=== PATIENT | male | born 2005 | race Caucasian/White ===

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

== ENCOUNTER 2025-06-15 13:35 | Observation (INO) | payer OTHER ==
[~2025-06-15] VITALS: Ht 182.9 cm; Wt 81.5 kg
[2025-06-15 14:23] LABS: BASOPHILS ABSOLUTE AUTO 0.05 K/mm3 (0.00-0.23); BASOPHILS PERCENT AUTO 1 % (0-2); EOSINOPHILS ABSOLUTE AUTO 0.11 K/mm3 (0.00-0.68); EOSINOPHILS PERCENT AUTO 1 % (0-6); Hematocrit 46.0 % (37.0-53.0); Hemoglobin 15.9 g/dL (13.5-17.5); IMMATURE GRAN ABSOLUTE AUTO 0.03 K/mm3 (0.00-0.10); IMMATURE GRAN PERCENT AUTO 0 % (0-1); LYMPHOCYTES ABSOLUTE AUTO 1.86 K/mm3 (0.84-5.20); LYMPHOCYTES PERCENT AUTO 18 % (21-46); MONOCYTES ABSOLUTE AUTO 0.63 K/mm3 (0.16-1.47); MONOCYTES PERCENT AUTO 6 % (4-13); Mean Corpuscular HGB Conc 34.6 g/dL (31.5-36.5); Mean Corpuscular Volume 84 fL (80-100); NEUTROPHILS ABSOLUTE AUTO 7.75 K/mm3 (1.96-9.15); NEUTROPHILS PERCENT AUTO 74 % (41-73); NRBC ABSOLUTE 0.00 K/mm3 (0.00-0.02); NRBC Auto 0.0 /100 WBC (0.0-0.2); Platelet Count 367 K/mm3 (150-400); RDW Coefficient Variation 11.9 % (11.7-14.2); RDW Standard Deviation 36.0 fL (35.1-46.3)
[2025-06-15 14:36] LABS: Prothrombin Time Results 11.9 Sec (9.7-11.5)
[2025-06-15 14:46] LABS: Alanine Aminotransfer (ALT/SGP 28.0 U/L (12-78); Albumin, Blood 4.7 g/dL (3.4-5.0); Albumin/Globulin Ratio 1.3 (0.8-1.8); Anion Gap 10.0 mmol/L (3-11); Aspartate Aminotrans (AST/SGOT 15.0 U/L (12-37); Bilirubin, Total 1.5 mg/dL (0.1-1.0); Blood Urea Nitrogen 15.0 mg/dL (8-24); CO2, Blood 26.0 mmol/L (21-32); Calcium, Blood 9.7 mg/dL (8.5-10.1); Chloride, Blood 104.0 mmol/L (98-108); Creatinine, Blood 1.07 mg/dL (0.60-1.20); Globulin, Blood 3.5 g/dL (2.2-4.0); Glucose, Blood 83.0 mg/dL (70-99); Potassium, Blood 3.9 mmol/L (3.5-5.5); Sodium, Blood 136.0 mmol/L (136-145); Total Protein, Blood 8.2 g/dL (6.4-8.2)
[2025-06-15] MEDS ORDERED: Dose Adjust by Pharmacy XX STA (17:27)
[2025-06-15] MEDS ORDERED: Heparin Sodium,Porcine/0.5 NS 500 ML IV SCH (17:30)
[2025-06-15] MEDS ORDERED: Heparin Sodium 5000 Units/ML 1ML MDV IV ONE (17:30)
[2025-06-15] MEDS ORDERED: FLU VACC TS2025-26(6MOS UP)/PF 45 MCG/0.5 ML SYRINGE IM SCH (18:35)
[2025-06-15 20:21] VITALS: BP 143/88
--- NOTE | 2025-06-15 20:48 | NUR ---
ADMIT NOTE HANDOFF RECEIVED FROM EARTH MOVING MACHINE OPERATOR CHIQUI. PT ARRIVED TO FLOOR VIA GURNEY. PT ORIENTED TO UNIT. CALL BUTTON WITHIN REACH. FAMILY AT BEDSIDE. FAMILY INFORMED OF THE PLAN. HEPARIN DRIP INFUSING ORDERED.
[2025-06-16] VITALS (7 sets, daily range): BP systolic 128–152; BP diastolic 69–93
--- NOTE | 2025-06-16 00:22 | NUR ---
SIX SIGMA BLACK BELT ENGINEER COMMUNICATION Per cnc maintenance technician Kera Sorto, patient is showing ST elevation only in the V lead. All other leads do not show ST elevation at this time. Confirmed all leads are without artifacts and intact w/o interferences. Patient sitting in bed w/o any signs of distress. Denies chest pain/discomfort. Called Dr. Saldaña w/ findings. No EKG ordered at this time. Continue to monitor.
[2025-06-16 01:11] LABS: BASOPHILS ABSOLUTE AUTO 0.07 K/mm3 (0.00-0.23); BASOPHILS PERCENT AUTO 1 % (0-2); EOSINOPHILS ABSOLUTE AUTO 0.20 K/mm3 (0.00-0.68); EOSINOPHILS PERCENT AUTO 2 % (0-6); Hematocrit 42.2 % (37.0-53.0); Hemoglobin 14.6 g/dL (13.5-17.5); IMMATURE GRAN ABSOLUTE AUTO 0.02 K/mm3 (0.00-0.10); IMMATURE GRAN PERCENT AUTO 0 % (0-1); LYMPHOCYTES ABSOLUTE AUTO 3.07 K/mm3 (0.84-5.20); LYMPHOCYTES PERCENT AUTO 35 % (21-46); MONOCYTES ABSOLUTE AUTO 0.59 K/mm3 (0.16-1.47); MONOCYTES PERCENT AUTO 7 % (4-13); Mean Corpuscular HGB Conc 34.6 g/dL (31.5-36.5); Mean Corpuscular Volume 84 fL (80-100); NEUTROPHILS ABSOLUTE AUTO 4.86 K/mm3 (1.96-9.15); NEUTROPHILS PERCENT AUTO 55 % (41-73); NRBC ABSOLUTE 0.00 K/mm3 (0.00-0.02); NRBC Auto 0.0 /100 WBC (0.0-0.2); Platelet Count 319 K/mm3 (150-400); RDW Coefficient Variation 11.9 % (11.7-14.2); RDW Standard Deviation 36.0 fL (35.1-46.3)
[2025-06-16 01:32] LABS: Alanine Aminotransfer (ALT/SGP 25.0 U/L (12-78); Albumin, Blood 3.9 g/dL (3.4-5.0); Albumin/Globulin Ratio 1.4 (0.8-1.8); Anion Gap 10.0 mmol/L (3-11); Aspartate Aminotrans (AST/SGOT 15.0 U/L (12-37); Bilirubin, Total 0.7 mg/dL (0.1-1.0); Blood Urea Nitrogen 19.0 mg/dL (8-24); CO2, Blood 27.0 mmol/L (21-32); Calcium, Blood 9.3 mg/dL (8.5-10.1); Chloride, Blood 107.0 mmol/L (98-108); Creatinine, Blood 1.0 mg/dL (0.60-1.20); Globulin, Blood 2.8 g/dL (2.2-4.0); Glucose, Blood 104.0 mg/dL (70-99); Potassium, Blood 3.7 mmol/L (3.5-5.5); Sodium, Blood 140.0 mmol/L (136-145); Total Protein, Blood 6.7 g/dL (6.4-8.2)
[2025-06-16] MEDS ORDERED: Dose Adjust by Pharmacy XX STA ×2 (01:32→08:41)
--- NOTE | 2025-06-16 04:38 | NUR ---
END OF SHIFT SUMMARY: AxOX4. FULL CODE. ADMITTED FOR LEFT ARM DVT AND IS ON HEPARIN PATIENT WAS ORDERED TO BE NPO AFTER BREAKFAST. [facility]GLADE IS TO TAKE OUT CLOT ON DAY SHIFT. PATIENT IS ON TELE NSR @ 66 BPM PATIENT DID HAVE AN ST ELEVATION IN THE V LEAD PER BAG ADJUSTER AND THIS WAS REPORTED TO . PATIENT IS ABLE TO MAKE NEEDS KNOWN. PATIENT TAKES MEDS WHOLE WITH FLUIDS. BED IN LOWEST POSITION. CALL LIGHT WITHIN REACH AND PATIENT HAS BEEN EDUCATED ON HOW TO USE. WILL REPORT TO ONCOMING NURSE.
--- NOTE | 2025-06-16 12:47 | NUR ---
0810 CALL TO OFFICE TO REMIND OF PATIENT IN 356 NEEDING THROMBECTOMY.
[2025-06-16] MEDS ORDERED: Heparin Sodium 1000 Units/ML 10ML MDV ONE ×2 (14:53→15:22)
[2025-06-16] MEDS ORDERED: NS 1,000 ML IV ONE ×3 (14:53→15:20)
[2025-06-16] MEDS ORDERED: Midazolam HCl 1MG / ML 2ML Vial ONE ×2 (15:13→15:34)
[2025-06-16] MEDS ORDERED: FentaNYL Citrate 50 MCG/ML 2 ML Injection ONE (15:13)
--- NOTE | 2025-06-16 18:22 | NUR ---
SHIFT SUMMARY PATIENT IS A&OX4 PLEASANT COOPERATIVE WITH CARE. HE IS ON ROOM AIR AND DOES HAVE TELE RUNNING SINUS RUMA AT 57BPM. IR DID GET HIM TODAY FOR THROMBECTOMY AT 1500. HIS POST OP VITALS HAVE BEEN STABLE. HE IS ON A HEPARIN DRIP 18UNITS/KG/HR. FAMILY IS IN THE ROOM AND BROUGHT HIM DINNER FROM OUTSIDE THE HOSPITAL. BED IS LOW AND LOCKED, CALL LIGHT IN REACH.
--- NOTE | 2025-06-16 18:46 | NUR ---
[address] FAYE TO ADVISED OF SLIGHTLY INCREASING BLOOD PRESSURE IN PATIENT POST OP VITALS. DR. FAYE ADVISED TO ADD LABETALOL IV 10MG Q4HR PRN FOR SYSTOLIC >160.
[2025-06-16] MEDS ORDERED: Labetalol HCL 5 MG/ML 4ML Injection (Single Dose) IV PRN (18:50)
[2025-06-17 00:13] VITALS: BP 102/50
[2025-06-17 00:13] LABS: Hematocrit 42.2 % (37.0-53.0); Hemoglobin 14.6 g/dL (13.5-17.5); Platelet Count 308 K/mm3 (150-400)
[2025-06-17] MEDS ORDERED: Dose Adjust by Pharmacy XX STA (00:33)
--- NOTE | 2025-06-17 02:28 | NUR ---
AT 0035 RN REVIEWED ORDER FROM PHARMACY TO CONTINUE HEPARIN AT THE SAME RATE. HEPARIN RUNNING AT 29.5 OR 18 UNITS/KG/HR
--- NOTE | 2025-06-17 04:39 | NUR ---
NO ACUTE CHANGES DURING SHIFT. PATIENT ALERT AND ORIENTED X4, ABLE TO MAKE NEEDS KNOWN. PT ABLE TO TURN SELF IN BED. HEPARIN DRIP RUNNING AT 18U/KG/HR. PATIENT ON ROOM AIR. TELE IN PLACE-RUNNING NSR. BED IN LOW POSITION WITH WHEELS LOCKED. CALL LIGHT WITHIN REACH
[2025-06-17 07:10] VITALS: BP 140/86
[2025-06-17 11:49] VITALS: BP 138/88
[2025-06-17] MEDS ORDERED: XARELTO20 MG PO (15:26)
--- NOTE | 2025-06-17 16:13 | NUR ---
1551 DISCHARGE DISCHARGE INSTRUCTIONS AND EDUCATION REVIEWED WITH PATIENT. ONBOARDING DOSE OF ELIQUIS 15MG PO GIVEN TO PATIENT PRIOR TO DISCHARGE. MED FAXED TO [facility]. ADVISED PATIENT DR. FAYE WOULD LIKE THE PATIENT TO KEEP THE BANDAGE OVER THE THROMBECTOMY SITE FOR 3-4 MORE DAYS AND DOES NOT WANT PATIENT RETURNING TO WORK UNTIL HE IS ABLE TO FOLLOW-UP WITH PRIMARY CARE. IV REMOVED WITHOUT INCIDENT. PATIENT LEFT THE CLINIC IN A STABLE CONDITION ON FOOT WITH HIS MOTHER AND OTHER FAMILY AND ALL HIS BELONGINGS.
[2025-06-19 14:51] LABS: HOMOCYSTEINE, TOTAL 10 umol/L (0-15)
[2025-06-20 01:50] LABS: B2GLYCOPROTEIN 1, IGG ANTIBODY <10 SGU (<=20); B2GLYCOPROTEIN 1, IGM ANTIBODY <10 SMU (<=20)
[2025-06-20 11:13] LABS: PROTEIN S AG FREE 81 % (74-147)
[2025-06-20 13:09] LABS: APC RESISTANCE 4.43 (>=2.00); FACTOR V LEIDEN BY PCR Not Done; FACV REF SPECIMEN Not Done
[2025-06-20 13:23] LABS: PROTEIN C FUNCTIONAL 145 % (83-168)
[2025-06-21 16:26] LABS: ANTITHROMBIN, ENZYM (ACTIVITY) 92 % (76-128)
[2025-06-23 11:54] LABS: ANTI-XA QUALITATIVE INTERP Present (Not Present); ANTICOAG MEDICATION NEUTRALIZ Hepzyme (Not Performed); DRVVT 1:1 MIX RATIO Not Performed (<=1.20); DRVVT CONFIRMATION RATIO Not Performed (<=1.20); DRVVT SCREEN RATIO 1.08 (<=1.20); HEXAGONAL PHOSPHOLIPID CONFIRM 0.0 s (<=7.9); NEUTRALIZED DRVVT SCREEN RATIO Not Performed (<=1.20); NEUTRALIZED PTT-LA RATIO 1.21 (<=1.20); PROTHROMBIN TIME (PT) 14.9 s (12.0-15.5); PTT-LA RATIO >4.00 (<=1.20); THROMBIN TIME (TT) >150.0 s (<=19.5)
[2025-06-23 15:56] LABS: PROTHROMBIN F2 G20210A VARIANT Negative; PT PCR SPECIMEN Whole Blood
== END 2025-06-17 16:03 | disposition home or self-care (01) ==
LOC: ER 13:35 → ERHOLD 13:36 → MEDS 13:36 → ENPENDDIS 06-17 15:20 → MEDS 06-17 16:03
PROVIDERS: Physician Assistant; ADMIT Family Medicine
DX: I82.B12 Acute embolism and thrombosis of left subclavian vein (principal); I82.A12 Acute embolism and thrombosis of left axillary vein; I82.612 Acute embolism and thrombosis of superficial veins of left upper extremity
CPT/HCPCS: 36415; 37187; 37248; 75820; 76937; 80053; 81240; 83090; 85014; 85018; 85025; 85049; 85300; 85303; 85306; 85307; 85520; 85525; 85610; 85613; 85670; 85730; 86146; 86147; 93005; 93010; 96365; 96366; 99152; 99153; 99285-25; A9270; C1725; C1769; C1887; C1894; G0378; J1644; J2250; J3010; J7030; Q9967